=== PATIENT | female | born 1980 | race Caucasian/White ===

== ENCOUNTER 2017-03-26 20:41 | Inpatient (IN) | payer OTHER ==
[2017-03-26 21:30] VITALS: BMI 22.3
--- NOTE | 2017-03-26 21:30 | HP ---
CIWA Score - CIWA Score Nausea/Vomitin-Mild Nausea/No Vomiting Muscle Tremors: 4-Moderate,w/Arms Extend Anxiety: 4-Mod. Anxious/Guarded Agitation: 4-Moderately Restless Paroxysmal Sweats: 1-Minimal Palms Moist Orientation: 0-Oriented Tacttile Disturbances: 0-None Auditory Disturbances: 0-None Visual Disturbances: 0-None Headache: 0-None Present CIWA-Ar Total Score: 14 Admission ROS BHS - HPI Chief Complaint: withdrawal sx Allergies/Adverse Reactions: Allergies Allergy/AdvReac Type Severity Reaction Status Date / Time No Known Allergies Allergy Verified 03/26/17 21:16 History of Present Illness: 36 years old female with long history of alcohol dependence denies medical issue has depression is admitted to detox Exam Limitations: No Limitations - Ebola screening Have you traveled outside of the country in the last 21 days: No (N) Have you had contact with anyone from an Ebola affected area: No Have you been sick,other than usual withdrawal symptoms: No Do you have a fever: No - Review of Systems Constitutional: Changes in sleep, Weight Stable EENT: reports: No Symptoms Reported Respiratory: reports: No Symptoms reported Cardiac: reports: No Symptoms Reported GI: reports: Nausea, Poor Fluid Intake, Abdominal cramping : reports: No Symptoms Reported Musculoskeletal: reports: No Symptoms Reported Integumentary: reports: No Symptoms Reported Neuro: reports: Tremors Endocrine: reports: No Symptoms Reported Hematology: reports: No Symptoms Reported Psychiatric: reports: Judgement Intact, Orientated x3, Anxious, Depressed Other Systems: Reviewed and Negative Patient History - Patient Medical History Hx Anemia: No Hx Asthma: No Hx Chronic Obstructive Pulmonary Disease (COPD): No Hx Cancer: No Hx Cardiac Disorders: No Hx Congestive Heart Failure: No Hx Hypertension: No Hx Hypercholesterolemia: No Hx Pacemaker: No HX Cerebrovascular Accident: No Hx Seizures: No Hx Dementia: No Hx Diabetes: No Hx Gastrointestinal Disorders: No Hx Liver Disease: No Hx Genitourinary Disorders: No Hx Renal Disease (ESRD): No Hx Thyroid Disease: No Hx Human Immunodeficiency Virus (HIV): No Hx Hepatitis C: No Hx Depression: Yes Hx Suicide Attempt: No Hx Bipolar Disorder: No Hx Schizophrenia: No - Patient Surgical History Past Surgical History: No - PPD History Previous Implant?: Yes Documented Results: Negative w/o proof Implanted On Prior [facility] Admission?: No PPD to be Administered?: Yes - Reproductive History Patient is a Female of Child Bearing Age (11 -55 yrs old): Yes Last Menstrual Period: 03/05/17 Patient : No - Smoking Cessation Smoking history: Never smoked Have you smoked in the past 12 months: No Hx Chewing Tobacco Use: No Initiated information on smoking cessation: No - Substance & Tx. History Hx Alcohol Use: Yes Hx Substance Use: No Substance Use Type: Alcohol Hx Substance Use Treatment: No - Substances Abused Alcohol Route: Oral Frequency: Daily Amount used: 2 SIX [id number] Age of first use: 18 Date of Last Use: 03/25/17 Family Disease History - Family Disease History Family Disease History: Heart Disease: Father (), Other: Father Admission Physical Exam [facility] - Physical General Appearance: Yes: Appropriately Dressed, Mild Distress, Thin, Tremorous, Irritable, Sweating, Anxious HEENTM: Yes: Hearing grossly Normal, Normal ENT Inspection, Normocephalic, Normal Voice Respiratory: Yes: Chest Non-Tender, Lungs Clear, Normal Breath Sounds, No Respiratory Distress, No Accessory Muscle Use Neck: Yes: Supple, Trachea in good position Breast: Yes: Breasts Symetrical Cardiology: Yes: Regular Rhythm, Regular Rate, S1, S2 Abdominal: Yes: Normal Bowel Sounds, Non Tender, Soft Genitourinary: Yes: Within Normal Limits Back: Yes: Normal Inspection Musculoskeletal: Yes: full range of Motion, Gait Steady Extremities: Yes: Normal Inspection, Normal Range of Motion, Non-Tender, Tremors Neurological: Yes: Fully Oriented, Alert, Motor Strength 5/5, Normal Response, Depressed Affect Integumentary: Yes: Warm Lymphatic: Yes: Within Normal Limits - Diagnostic (1) Alcohol dependence with uncomplicated withdrawal Current Visit: Yes Status: Acute (2) Depression (emotion) Current Visit: Yes Status: Suspected Qualifiers: Depression Type: dysthymia Qualified Code(s): F34.1 - Dysthymic disorder (3) of family member Current Visit: Yes Status: Chronic Comment: father 4 years ago "we were very close" Cleared for Admission [facility] - Detox or Rehab [facility] Level of Care: Medically Managed Detox Regimen/Protocol: Librium [facility] Breath Alcohol Content Breath Alcohol Content: 0 Vital Signs - Vital Signs Vital Signs Refused: No Temperature: 98.7 F Temperature Source: Oral Pulse Rate: 70 Respiratory Rate: 18 Blood Pressure: 120/74 BP Location: Left Arm Blood Pressure Position: Sitting - Height Height: 5 ft 3 in - Weight Weight: 126 lb Weight Measurement Method: Standing Scale Body Mass Index (BMI): 22.3 - Bowel Function Bowel Movement: Yes Urine Drug Screen - Control Is Test Valid: Yes - Results Drug Screen Negative: Yes
[2017-03-26] MEDS ORDERED: MAGNESIUM HYDROX 2400MG/30ML ORAL SUSPENSION 30 ML CUP PO PRN (21:33)
[2017-03-26] MEDS ORDERED: diphenhydrAMINE HCL 50 MG CAPSULE PO PRN (21:33)
[2017-03-26] MEDS ORDERED: MENTHOL/PHENOL 1 EACH UD MM PRN (21:33)
[2017-03-26] MEDS ORDERED: LOPERAMIDE HCL 2 MG CAPSULE PO PRN (21:33)
[2017-03-26] MEDS ORDERED: MAG HYDROX/AL HYDROX/SIMETH 30 ML UNIT-DOSE CUP PO PRN (21:33)
[2017-03-26] MEDS ORDERED: P-EPHED 60MG/TRIPROLIDI 2.5MG TABLET PO PRN (21:33)
[2017-03-26] MEDS ORDERED: chlordiazePOXIDE HCL 25 MG CAPSULE PO PRN (21:33)
[2017-03-26] MEDS ORDERED: guaiFENesin/D-METHORPHAN HB 10 ML UNIT-DOSE CUPS PO PRN (21:33)
[2017-03-26] MEDS ORDERED: MAGNESIUM CITRATE 300 ML BOTTLE PO PRN (21:33)
[2017-03-26] MEDS ORDERED: hydrOXYzine PAMOATE 50 MG CAPSULE (FP) PO PRN (21:33)
[2017-03-26] MEDS ORDERED: IBUPROFEN 400 MG TABLET (FP) PO PRN (21:33)
[2017-03-26] MEDS: THIAMINE HCL 100 MG TABLET (FP) PO SCH (22:57)
[2017-03-26] MEDS: chlordiazePOXIDE HCL 25 MG CAPSULE PO SCH (22:57)
[2017-03-27] MEDS: chlordiazePOXIDE HCL 25 MG CAPSULE PO SCH ×4 (05:38→22:11)
--- NOTE | 2017-03-27 09:36 | PN ---
BHS CIWA - CIWA Score Nausea/Vomitin Muscle Tremors: 4-Moderate,w/Arms Extend Anxiety: 4-Mod. Anxious/Guarded Agitation: 4-Moderately Restless Paroxysmal Sweats: 3 Orientation: 0-Oriented Tacttile Disturbances: 1-Very Mild Itch/Numbness Auditory Disturbances: 0-None Visual Disturbances: 0-None Headache: 1-Very Mild CIWA-Ar Total Score: 20 BHS Progress Note (SOAP) Subjective: nausea, sweats, interrupted sleep, anxiety, tremors Objective: 03/27/17 09:35 Vital Signs - 24 hr 03/26/17 03/26/17 03/27/17 21:42 23:11 00:30 Temperature 98.7 F 98.2 F Pulse Rate 70 79 Respiratory 18 18 18 Rate Blood Pressure 120/74 106/63 03/27/17 03/27/17 06:33 06:36 Temperature 97.5 F L 97.5 F L Pulse Rate 73 73 Respiratory 18 18 Rate Blood Pressure 119/68 119/68 labs pending Assessment: 03/27/17 09:35 withdrawal sx Plan: cont detox, fluids, encourage ambulation, check labs
[2017-03-27 09:46] LABS: MCH 31.5 pg (25.7-33.7); MCHC 32.7 g/dl (32.0-36.0); MEAN CELL VOLUME 96.4 fl (80-96); MEAN PLT VOLUME 8.4 fl (7.5-11.1); PLATELET COUNT 228 K/MM3 (134-434); RDW 13.8 % (11.6-15.6); WHITE BLOOD COUNT 3.1 K/mm3 (4.0-10.0)
[2017-03-27 10:13] LABS: ALBUMIN 3.8 g/dl (3.4-5.0); ANION GAP 3 (8-16); CALCIUM 8.9 mg/dL (8.5-10.1); CO2 32 mmol/L (21-32); GLUCOSE,RANDOM 84 mg/dL (74-106)
[2017-03-27] MEDS: PRENATAL VITAMINS W/ FOLIC ACID TABLET (FP) PO SCH (10:17)
[2017-03-27 10:18] LABS: ALK PHOS 50 U/L (45-117); BILIRUBIN,TOTAL 0.8 mg/dL (0.2-1.0); CREATININE 0.8 mg/dL (0.55-1.02); SGOT/AST 20 U/L (15-37); SGPT/ALT 27 U/L (12-78); TOT PROT 7.1 g/dl (6.4-8.2)
[2017-03-27] MEDS: ACETAMINOPHEN 325 MG TABLET (FP) PO PRN ×2 (10:19→22:11)
[2017-03-27 11:24] LABS: HIV 1 & 2 AB NEGATIVE; HIV 1 AGp24 NEGATIVE
--- NOTE | 2017-03-27 15:34 | CONSULT ---
[facility] Psychiatric Consult - Data Date of interview: 03/27/17 Admission source: [facility] Identifying data: First admission to [facility] for this 36 y/o [place]-born female seeking detox treatment on for alcohol dependence.Patient is ,a mother of three,domiciled and currently employed. Substance Abuse History: Discussed with patient.Ms Calvillo validates this report. Smoking Cessation. Smoking history: Never smoked. Have you smoked in the past 12 months: No. Hx Chewing Tobacco Use: No. Initiated information on smoking cessation: No. - Substance & Tx. History. Hx Alcohol Use: Yes. Hx Substance Use: No. Substance Use Type: Alcohol. Hx Substance Use Treatment: No. - Substances Abused. Alcohol. Route: Oral. Frequency: Daily. Amount used: 2 SIX [id number]. Age of first use: 18. Date of Last Use: 03/25/17 Medical History: Patient endorses good general health. Psychiatric History: No reported history of psychiatric hospitalizations.Ms Calvillo endorses the diagnosis of MDD and she gets her psychiatric OPD services at the [facility].Managed with psychotherapy + lexapro 10 mg/day (non- adherent for 2-3 days) as per self-report.Patient denies history of suicide attempts. Physical/Sexual Abuse/Trauma History: Patient denies history of abuse. Additional Comment: Drug Screen is negative. Mental Status Exam - Mental Status Exam Alert and Oriented to: Time, Place, Person Cognitive Function: Good Patient Appearance: Well Groomed (short stature,petite) Mood: Hopeful, Euthymic Affect: Appropriate, Normal Range Patient Behavior: Fatigued, Cooperative Speech Pattern: Clear (french fluent) Voice Loudness: Normal Thought Process: Intact, Goal Oriented Thought Disorder: Not Present Hallucinations: Denies Suicidal Ideation: Denies Homicidal Ideation: Denies Insight/Judgement: Fair Sleep: Well Appetite: Good Muscle strength/Tone: Normal Gait/Station: Normal Psychiatric Findings - Problem List ([place] 1, 2,3) (1) Alcohol dependence with uncomplicated withdrawal Current Visit: Yes Status: Acute (2) Alcohol-induced mood disorder Current Visit: Yes Status: Suspected (3) Depressive disorder Current Visit: Yes Status: Chronic - Initial Treatment Plan Initial Treatment Plan: Psychoeducation.Detoxification in progress.Lexapro 10 mg po daily.Side effects/benefits discussed with patient.She is in agreement with this careplan.Observation.
[2017-03-27] MEDS: THIAMINE HCL 100 MG TABLET (FP) PO SCH (22:11)
[2017-03-28] MEDS: chlordiazePOXIDE HCL 25 MG CAPSULE PO SCH ×3 (05:31→17:28)
--- NOTE | 2017-03-28 09:53 | EKG ---
Test Reason : Blood Pressure : / mmHG Vent. Rate : 075 BPM Atrial Rate : 075 BPM P-R Int : 140 ms QRS Dur : 080 ms QT Int : 404 ms P-R-T Axes : 074 073 046 degrees QTc Int : 451 ms SINUS RHYTHM WITH OCCASIONAL PREMATURE VENTRICULAR COMPLEXES POSSIBLE LEFT ATRIAL ENLARGEMENT BORDERLINE ECG NO PREVIOUS ECGS AVAILABLE Confirmed by GENIE CURTIS, ISABEL ([id number]) on 03/28/2017 9:53:24 AM Referred By: Confirmed By:ISABEL PRESCOTT MD
[2017-03-28] MEDS ORDERED: diphenhydrAMINE HCL 25 MG CAPSULE (FP) PO PRN (10:15)
[2017-03-28] MEDS: ESCITALOPRAM OXALATE 10 MG TABLET (FP) PO SCH (10:16)
[2017-03-28] MEDS ORDERED: COLLOIDAL OATMEAL 1 BAR EACH TP PRN (10:16)
[2017-03-28] MEDS: PRENATAL VITAMINS W/ FOLIC ACID TABLET (FP) PO SCH (10:16)
--- NOTE | 2017-03-28 10:37 | PN ---
S CIWA - CIWA Score Nausea/Vomitin Muscle Tremors: 3 Anxiety: 3 Agitation: 2 Paroxysmal Sweats: No Perspiration Orientation: 0-Oriented Tacttile Disturbances: 1-Very Mild Itch/Numbness Auditory Disturbances: 1-Very Mild Visual Disturbances: 0-None Headache: 2-Mild CIWA-Ar Total Score: 15 S Progress Note (SOAP) Subjective: ALERT,IRRITABLE,ANXIOUS,INTERRUPTED SLEEP,TREMOR,ITCHING Objective: 03/28/17 10:34 Vital Signs Temperature 98.1 F 03/28/17 10:25 Pulse Rate 98 H 03/28/17 10:25 Respiratory Rate 18 03/28/17 10:25 Blood Pressure 115/70 03/28/17 10:25 O2 Sat by Pulse Oximetry (%) EKG NSR WITH SINUS ARRHYTHMIA Laboratory Last Values WBC 3.1 K/mm3 (4.0-10.0) L 03/27/17 08:00 RBC 4.32 M/mm3 (3.60-5.2) 03/27/17 08:00 Hgb 13.6 GM/dL (10.7-15.3) 03/27/17 08:00 Hct 41.6 % (32.4-45.2) 03/27/17 08:00 MCV 96.4 fl (80-96) H 03/27/17 08:00 MCH 31.5 pg (25.7-33.7) 03/27/17 08:00 MCHC 32.7 g/dl (32.0-36.0) 03/27/17 08:00 RDW 13.8 % (11.6-15.6) 03/27/17 08:00 Plt Count 228 K/MM3 (134-434) 03/27/17 08:00 MPV 8.4 fl (7.5-11.1) 03/27/17 08:00 Sodium 137 mmol/L (136-145) 03/27/17 07:00 Potassium 4.1 mmol/L (3.5-5.1) 03/27/17 07:00 Chloride 102 mmol/L (98-107) 03/27/17 07:00 Carbon Dioxide 32 mmol/L (21-32) 03/27/17 07:00 Anion Gap 3 (8-16) L 03/27/17 07:00 BUN 11 mg/dL (7-18) 03/27/17 07:00 Creatinine 0.8 mg/dL (0.55-1.02) 03/27/17 07:00 Creat Clearance w eGFR > 60 (>60) 03/27/17 07:00 Random Glucose 84 mg/dL (74-106) 03/27/17 07:00 Calcium 8.9 mg/dL (8.5-10.1) 03/27/17 07:00 Total Bilirubin 0.8 mg/dL (0.2-1.0) 03/27/17 07:00 AST 20 U/L (15-37) 03/27/17 07:00 ALT 27 U/L (12-78) 03/27/17 07:00 Alkaline Phosphatase 50 U/L (45-117) 03/27/17 07:00 Total Protein 7.1 g/dl (6.4-8.2) 03/27/17 07:00 Albumin 3.8 g/dl (3.4-5.0) 03/27/17 07:00 RPR Titer Nonreactive (NONREACTIVE) 03/27/17 07:00 Hepatitis C Antibody <0.1 s/co ratio (0.0-0.9) 03/26/17 08:30 HIV 1&2 Antibody Screen Negative 03/27/17 08:30 HIV P24 Antigen Negative 03/27/17 08:30 WITHDRAWAL SYMPTOM Assessment: 03/28/17 10:35 WITHDRAWAL SYMPTOM Plan: CONTINUE DETOX,AVEENO SOAP,BENADRYL 25 MGS PO Q6HRS PRN FOR ITCHING
[2017-03-28 13:54] LABS: URINE APPEARANCE CLEAR; URINE BILIRUBIN NEGATIVE (NEGATIVE); URINE BLOOD NEGATIVE (NEGATIVE); URINE COLOR LTYELLOW; URINE GLUCOSE (UA) NEGATIVE (NEGATIVE); URINE KETONE NEGATIVE (NEGATIVE); URINE LEUK ESTERASE NEGATIVE (NEGATIVE); URINE NITRITE NEGATIVE (NEGATIVE); URINE PROTEIN NEGATIVE (NEGATIVE); URINE UROBILINOGEN NEGATIVE mg/dL (0.2-1.0)
[2017-03-28] MEDS: chlordiazePOXIDE 5 MG CAPSULE PO SCH (22:13)
[2017-03-28] MEDS: THIAMINE HCL 100 MG TABLET (FP) PO SCH (22:13)
[2017-03-29] MEDS: chlordiazePOXIDE 5 MG CAPSULE PO SCH ×3 (05:40→17:43)
[2017-03-29] MEDS: ESCITALOPRAM OXALATE 10 MG TABLET (FP) PO SCH (10:09)
[2017-03-29] MEDS: PRENATAL VITAMINS W/ FOLIC ACID TABLET (FP) PO SCH (10:09)
--- NOTE | 2017-03-29 10:09 | PN ---
BHS Progress Note (SOAP) Subjective: ALERT,IRRITABLE,INTERRUPTED SLEEP Objective: 03/29/17 10:08 Vital Signs Temperature 98.4 F 03/29/17 06:21 Pulse Rate 69 03/29/17 06:21 Respiratory Rate 16 03/29/17 06:21 Blood Pressure 91/68 03/29/17 06:21 O2 Sat by Pulse Oximetry (%) Assessment: 03/29/17 10:08 WITHDRAWAL SYMPTOM 03/29/17 10:09 Plan: CONTINUE DETOX,DISCHARGE IN AM
[2017-03-29] MEDS: chlordiazePOXIDE HCL 10 MG CAPSULE PO SCH (22:07)
[2017-03-29] MEDS: THIAMINE HCL 100 MG TABLET (FP) PO SCH (22:07)
[2017-03-30] MEDS: chlordiazePOXIDE HCL 10 MG CAPSULE PO SCH (05:03)
[2017-03-30 06:09] VITALS: BP 119/75; PULSE 73; TEMP 97.7
--- NOTE | 2017-03-30 08:12 | DS ---
[facility] Detox Discharge Summary Admission Date: 03/26/17 Discharge Date: 03/30/17 - History Present History: Alcohol Dependence Additional Comments: follow up with after care program as arrangement Pertinent Past History: depression - Physical Exam Results Vital Signs: Vital Signs Temperature 97.7 F 03/30/17 06:00 Pulse Rate 73 03/30/17 06:00 Respiratory Rate 16 03/30/17 06:00 Blood Pressure 119/75 03/30/17 06:00 O2 Sat by Pulse Oximetry (%) Pertinent Admission Physical Exam Findings: withdrawal symptom - Treatment Hospital Course: Detox Protocol Followed, Detoxed Safely, Discharged Condition Good Patient has Accepted a Rehab Referral to: declined - Medication Discharge Medications: Ambulatory Orders Escitalopram Oxalate [Lexapro -] 10 mg PO DAILY 03/26/17 Escitalopram Oxalate [Lexapro -] 10 mg PO DAILY #30 tablet 03/27/17 - Diagnosis (1) Alcohol dependence with uncomplicated withdrawal Current Visit: Yes Status: Acute (2) Depressive disorder Current Visit: Yes Status: Chronic (3) Alcohol-induced mood disorder Current Visit: Yes Status: Suspected - AMA Did Patient Leave Against Medical Advice: No
[2017-03-30] MEDS: PRENATAL VITAMINS W/ FOLIC ACID TABLET (FP) PO SCH (10:13)
[2017-03-30] MEDS: ESCITALOPRAM OXALATE 10 MG TABLET (FP) PO SCH (10:13)
== END 2017-03-30 10:30 | disposition home or self-care (01) | DRG 775 ==
LOC: YASAS 20:41 → Y6N 21:21
PROVIDERS: ADMIT Internal Medicine; ATTEND Internal Medicine
PROC: HZ2ZZZZ Detoxification Services for Substance Abuse Treatment (ICD-10-PCS; principal; 2017-03-26)
DX: F10.230 Alcohol dependence with withdrawal, uncomplicated (principal); F10.24 Alcohol dependence with alcohol-induced mood disorder; F34.1 Dysthymic disorder; Z63.4 Disappearance and death of family member
CPT/HCPCS: 36415; 80053; 81003; 85027; 86593; 86803; 87389; 93005; 93010

== ENCOUNTER 2018-01-15 15:25 | Inpatient (IN) | payer OTHER ==
[2018-01-15 15:53] VITALS: BMI 24.0
--- NOTE | 2018-01-15 19:36 | HP ---
CIWA Score - CIWA Score Nausea/Vomitin Muscle Tremors: 2 Anxiety: 3 Agitation: 2 Paroxysmal Sweats: 1-Minimal Palms Moist Orientation: 0-Oriented Tacttile Disturbances: 0-None Auditory Disturbances: 0-None Visual Disturbances: 0-None Headache: 2-Mild CIWA-Ar Total Score: 13 Admission ROS S - HPI Chief Complaint: alcohol withdrawal symptoms Allergies/Adverse Reactions: Allergies Allergy/AdvReac Type Severity Reaction Status Date / Time No Known Allergies Allergy Verified 01/15/18 19:17 History of Present Illness: 37 yo male with hx of alcohol dependence is here seeking detox. Last detox [facility] March 2017. PMHX:depression. Denies suicidal / homicidal ideation. Longest period sobriety 20 days. Denies hx of seizures or blackouts. Exam Limitations: No Limitations - Ebola screening Have you traveled outside of the country in the last 21 days: No (N) Have you had contact with anyone from an Ebola affected area: No Have you been sick,other than usual withdrawal symptoms: No Do you have a fever: No - Review of Systems Constitutional: Chills, Changes in sleep EENT: reports: No Symptoms Reported Respiratory: reports: No Symptoms reported Cardiac: reports: No Symptoms Reported GI: reports: Nausea, Vomiting : reports: No Symptoms Reported Musculoskeletal: reports: Back Pain, Joint Pain Integumentary: reports: No Symptoms Reported Neuro: reports: Headache Endocrine: reports: Increased Thirst Hematology: reports: No Symptoms Reported Psychiatric: reports: Orientated x3, Depressed Other Systems: Reviewed and Negative Patient History - Patient Medical History Hx Anemia: No Hx Asthma: No Hx Chronic Obstructive Pulmonary Disease (COPD): No Hx Cancer: No Hx Cardiac Disorders: No Hx Congestive Heart Failure: No Hx Hypertension: No Hx Hypercholesterolemia: No Hx Pacemaker: No HX Cerebrovascular Accident: No Hx Seizures: No Hx Dementia: No Hx Diabetes: No Hx Gastrointestinal Disorders: No Hx Liver Disease: No Hx Genitourinary Disorders: No Hx Sexually Transmitted Disorders: No Hx Renal Disease (ESRD): No Hx Thyroid Disease: No Hx Human Immunodeficiency Virus (HIV): No Hx Hepatitis C: No Hx Depression: Yes Hx Suicide Attempt: No Hx Bipolar Disorder: No Hx Schizophrenia: No - Patient Surgical History Past Surgical History: Yes Hx Neurologic Surgery: No Hx Cataract Extraction: No Hx Cardiac Surgery: No Hx Lung Surgery: No Hx Breast Surgery: No Hx Breast Biopsy: No Hx Abdominal Surgery: No Hx Appendectomy: No Hx Cholecystectomy: No Hx Genitourinary Surgery: No Hx Section: No Hx Orthopedic Surgery: No Other Surgical History: tubal litigation 2008 Anesthesia Reaction: No - PPD History Documented Results: Negative w/proof Date: 03/28/17 PPD to be Administered?: No - Reproductive History Last Menstrual Period: 03/05/17 Patient : No - Smoking Cessation Smoking history: Never smoked Have you smoked in the past 12 months: No Hx Chewing Tobacco Use: No Initiated information on smoking cessation: No - Substance & Tx. History Hx Alcohol Use: Yes Hx Substance Use: Yes Substance Use Type: Alcohol Hx Substance Use Treatment: Yes ([facility] March 2017) - Substances Abused Alcohol Route: Oral Frequency: Daily Amount used: beer- 2 six packs Age of first use: 16 Date of Last Use: 01/14/18 Family Disease History - Family Disease History Family Disease History: Heart Disease: Father (), Other: Father Admission Physical Exam [facility] - Vital Signs Vital Signs: Vital Signs - 24 hr 01/15/18 15:51 Temperature 98.9 F Pulse Rate 72 Respiratory 19 Rate Blood Pressure 130/75 - Physical General Appearance: Yes: Appropriately Dressed, Disheveled, Anxious HEENTM: Yes: EOMI, Hearing grossly Normal, Normal ENT Inspection, Normocephalic , Normal Voice, OSWALD, Pharynx Normal, Tm's normal Respiratory: Yes: Chest Non-Tender, Lungs Clear, Normal Breath Sounds, No Respiratory Distress, No Accessory Muscle Use Neck: Yes: Within Normal Limits Breast: Yes: Breast Exam Deferred Cardiology: Yes: Regular Rhythm, Regular Rate Abdominal: Yes: Normal Bowel Sounds, Non Tender, Flat, Soft Genitourinary: Yes: Within Normal Limits Back: Yes: Normal Inspection Musculoskeletal: Yes: full range of Motion, Gait Steady, Pelvis Stable Extremities: Yes: Normal Capillary Refill, Normal Inspection, Normal Range of Motion, Non-Tender Neurological: Yes: nutritionalist II-XII NML intact, Fully Oriented, Motor Strength 5/5, Depressed Affect Integumentary: Yes: Normal Color, Warm Lymphatic: Yes: Within Normal Limits - Diagnostic (1) Alcohol dependence with uncomplicated withdrawal Current Visit: Yes Status: Acute (2) Depression (emotion) Current Visit: Yes Status: Suspected Qualifiers: Depression Type: dysthymia Qualified Code(s): F34.1 - Dysthymic disorder Cleared for Admission [facility] - Detox or Rehab [facility] Level of Care: Medically Managed Detox Regimen/Protocol: Librium [facility] Breath Alcohol Content Breath Alcohol Content: 0 Urine Pregancy Test - Result Urine Test Results: Negative- NO Line Present Urine Drug Screen - Results Drug Screen Negative: Yes
[2018-01-15] MEDS ORDERED: MAGNESIUM CITRATE 300 ML BOTTLE PO PRN (19:47)
[2018-01-15] MEDS ORDERED: ACETAMINOPHEN 325 MG TABLET (FP) PO PRN (19:47)
[2018-01-15] MEDS ORDERED: hydrOXYzine PAMOATE 50 MG CAPSULE (FP) PO PRN (19:47)
[2018-01-15] MEDS ORDERED: MAG HYDROX/AL HYDROX/SIMETH 30 ML UNIT-DOSE CUP PO PRN (19:47)
[2018-01-15] MEDS ORDERED: IBUPROFEN 400 MG TABLET (FP) PO PRN (19:47)
[2018-01-15] MEDS ORDERED: chlordiazePOXIDE HCL 25 MG CAPSULE PO PRN (19:47)
[2018-01-15] MEDS ORDERED: guaiFENesin/D-METHORPHAN HB 10 ML UNIT-DOSE CUPS PO PRN (19:47)
[2018-01-15] MEDS ORDERED: LOPERAMIDE HCL 2 MG CAPSULE PO PRN (19:47)
[2018-01-15] MEDS ORDERED: P-EPHED 60MG/TRIPROLIDI 2.5MG TABLET PO PRN (19:47)
[2018-01-15] MEDS ORDERED: MAGNESIUM HYDROX 2400MG/30ML ORAL SUSPENSION 30 ML CUP PO PRN (19:47)
[2018-01-15] MEDS ORDERED: MENTHOL/PHENOL 1 EACH UD MM PRN (19:47)
[2018-01-15] MEDS: THIAMINE HCL 100 MG TABLET (FP) PO SCH (22:00)
[2018-01-15] MEDS: MELATONIN 5 MG TABLETS PO PRN (22:00)
[2018-01-15] MEDS: chlordiazePOXIDE HCL 25 MG CAPSULE PO SCH (22:00)
[2018-01-16] MEDS: chlordiazePOXIDE HCL 25 MG CAPSULE PO SCH ×4 (05:42→22:11)
--- NOTE | 2018-01-16 07:32 | CONSULT ---
[facility] Psychiatric Consult - Data Date of interview: 01/16/18 Admission source: [facility] Identifying data: This is 37 years old female, single mother of one, living alone, unemployed, on SSI, with no psychiatric hospitalization history, with long history of Alcohol dependence, reports withdrawal symptoms and seeking for detox. Substance Abuse History: - Smoking Cessation. Smoking history: Never smoked. Have you smoked in the past 12 months: No. Hx Chewing Tobacco Use: No. Initiated information on smoking cessation: No. - Substance & Tx. History. Hx Alcohol Use: Yes. Hx Substance Use: Yes. Substance Use Type: Alcohol. Hx Substance Use Treatment: Yes ([facility] March 2017). - Substances Abused. Alcohol. Route: Oral. Frequency: Daily. Amount used: beer- 2 six packs. Age of first use: 16. Date of Last Use: 01/14/18 Medical History: Denies significant medical issues Psychiatric History: Patient reports history of ndepression, denies osychiatric hospitalization history, reports taking prior to admission Lexapro 20mg poqd, but out of medications for a month and refusing to restart them. Patient denies suicidal and homicidal history Physical/Sexual Abuse/Trauma History: Denies Additional Comment: Observation. Detox Unit Care Protocol Mental Status Exam - Mental Status Exam Alert and Oriented to: Person Cognitive Function: Fair Patient Appearance: Unkempt Mood: Sad Affect: Flat Patient Behavior: Sedated Speech Pattern: Delayed Voice Loudness: Mildly Soft/Quiet Thought Process: Circumstantial Thought Disorder: Being Controlled Hallucinations: Denies Suicidal Ideation: Denies Homicidal Ideation: Denies Insight/Judgement: Fair Sleep: Difficulty falling asleep Appetite: Fair Muscle strength/Tone: Mild Hypotonicity Gait/Station: Shuffling Additional Comments: Observation. Detox Unit Care Protocol Psychiatric Findings - Problem List ([place] 1, 2,3) (1) Alcohol induced insomnia Current Visit: Yes Status: Acute (2) Onset of alcohol-induced sleep disorder, insomnia type, during discontinuation or withdrawal Current Visit: Yes Status: Acute (3) Alcohol dependence with uncomplicated withdrawal Current Visit: Yes Status: Acute (4) Alcohol-induced mood disorder Current Visit: No Status: Suspected - Initial Treatment Plan Initial Treatment Plan: Observation. Detox Unit Care Protocol
[2018-01-16 09:41] LABS: HEMOGLOBIN 13.6 GM/dL (10.7-15.3); MCH 31.8 pg (25.7-33.7); MEAN CELL VOLUME 93.4 fl (80-96); MEAN PLT VOLUME 8.6 fl (7.5-11.1); PLATELET COUNT 204 K/MM3 (134-434); RBC 4.28 M/mm3 (3.60-5.2); RDW 13.5 % (11.6-15.6); WHITE BLOOD COUNT 3.1 K/mm3 (4.0-10.0)
[2018-01-16 09:59] LABS: CHLORIDE 102 mmol/L (98-107); POTASSIUM 3.9 mmol/L (3.5-5.1); SODIUM 142 mmol/L (136-145)
[2018-01-16 10:20] LABS: ALBUMIN 3.8 g/dl (3.4-5.0); ALK PHOS 65 U/L (45-117); ANION GAP 8 (8-16); BILIRUBIN,TOTAL 0.8 mg/dL (0.2-1.0); BLOOD UREA NITROGEN 11 mg/dL (7-18); CALCIUM 9.1 mg/dL (8.5-10.1); CO2 32 mmol/L (21-32); CREATININE 0.8 mg/dL (0.55-1.02); GLUCOSE,RANDOM 90 mg/dL (74-106); SGOT/AST 22 U/L (15-37); SGPT/ALT 26 U/L (12-78); TOT PROT 7.2 g/dl (6.4-8.2)
[2018-01-16] MEDS: PRENATAL VITAMINS W/ FOLIC ACID TABLET (FP) PO SCH (10:36)
--- NOTE | 2018-01-16 11:41 | PN ---
S CIWA - CIWA Score Nausea/Vomitin Muscle Tremors: 3 Anxiety: 3 Agitation: 2 Paroxysmal Sweats: 1-Minimal Palms Moist Orientation: 0-Oriented Tacttile Disturbances: 1-Very Mild Itch/Numbness Auditory Disturbances: 1-Very Mild Visual Disturbances: 0-None Headache: 2-Mild CIWA-Ar Total Score: 16 BHS Progress Note (SOAP) Subjective: alert,irritable,anxious,interrupted sleep,tremor,pain in the body Objective: 01/16/18 11:38 Vital Signs Temperature 97.5 F L 01/16/18 09:06 Pulse Rate 65 01/16/18 09:06 Respiratory Rate 18 01/16/18 09:06 Blood Pressure 109/70 01/16/18 09:06 O2 Sat by Pulse Oximetry (%) ekg nsr with sinus arrhythmia qt/qtc 400/440 01/16/18 11:40 Laboratory Last Values WBC 3.1 K/mm3 (4.0-10.0) L 01/16/18 07:00 RBC 4.28 M/mm3 (3.60-5.2) 01/16/18 07:00 Hgb 13.6 GM/dL (10.7-15.3) 01/16/18 07:00 Hct 40.0 % (32.4-45.2) 01/16/18 07:00 MCV 93.4 fl (80-96) 01/16/18 07:00 MCH 31.8 pg (25.7-33.7) 01/16/18 07:00 MCHC 34.0 g/dl (32.0-36.0) 01/16/18 07:00 RDW 13.5 % (11.6-15.6) 01/16/18 07:00 Plt Count 204 K/MM3 (134-434) 01/16/18 07:00 MPV 8.6 fl (7.5-11.1) 01/16/18 07:00 Sodium 142 mmol/L (136-145) 01/16/18 07:00 Potassium 3.9 mmol/L (3.5-5.1) 01/16/18 07:00 Chloride 102 mmol/L (98-107) 01/16/18 07:00 Carbon Dioxide 32 mmol/L (21-32) 01/16/18 07:00 Anion Gap 8 (8-16) 01/16/18 07:00 BUN 11 mg/dL (7-18) 01/16/18 07:00 Creatinine 0.8 mg/dL (0.55-1.02) 01/16/18 07:00 Creat Clearance w eGFR > 60 (>60) 01/16/18 07:00 Random Glucose 90 mg/dL (74-106) 01/16/18 07:00 Calcium 9.1 mg/dL (8.5-10.1) 01/16/18 07:00 Total Bilirubin 0.8 mg/dL (0.2-1.0) 01/16/18 07:00 AST 22 U/L (15-37) 01/16/18 07:00 ALT 26 U/L (12-78) 01/16/18 07:00 Alkaline Phosphatase 65 U/L (45-117) 01/16/18 07:00 Total Protein 7.2 g/dl (6.4-8.2) 01/16/18 07:00 Albumin 3.8 g/dl (3.4-5.0) 01/16/18 07:00 RPR Titer Nonreactive (NONREACTIVE) 01/16/18 07:00 Assessment: 01/16/18 11:39 withdrawal symptom Plan: continue detox
--- NOTE | 2018-01-16 12:45 | EKG ---
Test Reason : Blood Pressure : / mmHG Vent. Rate : 073 BPM Atrial Rate : 073 BPM P-R Int : 144 ms QRS Dur : 076 ms QT Int : 400 ms P-R-T Axes : 080 076 040 degrees QTc Int : 440 ms NORMAL SINUS RHYTHM WITH SINUS ARRHYTHMIA NORMAL ECG WHEN COMPARED WITH ECG OF 26-MAR-2017 21:11, PREMATURE VENTRICULAR COMPLEXES ARE NO LONGER PRESENT T WAVE AMPLITUDE HAS INCREASED IN ANTERIOR LEADS Confirmed by GENIE CURTIS, ISABEL ([id number]) on 01/16/2018 12:45:23 PM Referred By: Confirmed By:ISABEL PRESCOTT MD
[2018-01-16 17:33] LABS: URINE APPEARANCE CLEAR; URINE BILIRUBIN NEGATIVE (<2.0 mg/dL); URINE COLOR YELLOW; URINE GLUCOSE (UA) NEGATIVE (NEGATIVE); URINE KETONE NEGATIVE (NEGATIVE); URINE LEUK ESTERASE NEGATIVE (NEGATIVE); URINE NITRITE NEGATIVE (NEGATIVE); URINE PROTEIN NEGATIVE (NEGATIVE); URINE UROBILINOGEN 4.0 E.U/dl mg/dL (0.2-1.0)
[2018-01-16] MEDS: THIAMINE HCL 100 MG TABLET (FP) PO SCH (22:11)
[2018-01-16] MEDS: MELATONIN 5 MG TABLETS PO PRN (22:11)
[2018-01-17] MEDS: chlordiazePOXIDE HCL 25 MG CAPSULE PO SCH ×3 (05:22→18:30)
--- NOTE | 2018-01-17 10:04 | PN ---
S CIWA - CIWA Score Nausea/Vomitin Muscle Tremors: 3 Anxiety: 3 Agitation: 2 Paroxysmal Sweats: 1-Minimal Palms Moist Orientation: 0-Oriented Tacttile Disturbances: 1-Very Mild Itch/Numbness Auditory Disturbances: 1-Very Mild Visual Disturbances: 0-None Headache: 2-Mild CIWA-Ar Total Score: 16 S Progress Note (SOAP) Subjective: alert,irritable,anxious,interrupted sleep,tremor Objective: 01/17/18 10:02 Vital Signs Temperature 97.3 F L 01/17/18 07:24 Pulse Rate 71 01/17/18 07:24 Respiratory Rate 16 01/17/18 07:24 Blood Pressure 119/56 01/17/18 07:24 O2 Sat by Pulse Oximetry (%) 01/17/18 10:03 Laboratory Last Values WBC 3.1 K/mm3 (4.0-10.0) L 01/16/18 07:00 RBC 4.28 M/mm3 (3.60-5.2) 01/16/18 07:00 Hgb 13.6 GM/dL (10.7-15.3) 01/16/18 07:00 Hct 40.0 % (32.4-45.2) 01/16/18 07:00 MCV 93.4 fl (80-96) 01/16/18 07:00 MCH 31.8 pg (25.7-33.7) 01/16/18 07:00 MCHC 34.0 g/dl (32.0-36.0) 01/16/18 07:00 RDW 13.5 % (11.6-15.6) 01/16/18 07:00 Plt Count 204 K/MM3 (134-434) 01/16/18 07:00 MPV 8.6 fl (7.5-11.1) 01/16/18 07:00 Sodium 142 mmol/L (136-145) 01/16/18 07:00 Potassium 3.9 mmol/L (3.5-5.1) 01/16/18 07:00 Chloride 102 mmol/L (98-107) 01/16/18 07:00 Carbon Dioxide 32 mmol/L (21-32) 01/16/18 07:00 Anion Gap 8 (8-16) 01/16/18 07:00 BUN 11 mg/dL (7-18) 01/16/18 07:00 Creatinine 0.8 mg/dL (0.55-1.02) 01/16/18 07:00 Creat Clearance w eGFR > 60 (>60) 01/16/18 07:00 Random Glucose 90 mg/dL (74-106) 01/16/18 07:00 Calcium 9.1 mg/dL (8.5-10.1) 01/16/18 07:00 Total Bilirubin 0.8 mg/dL (0.2-1.0) 01/16/18 07:00 AST 22 U/L (15-37) 01/16/18 07:00 ALT 26 U/L (12-78) 01/16/18 07:00 Alkaline Phosphatase 65 U/L (45-117) 01/16/18 07:00 Total Protein 7.2 g/dl (6.4-8.2) 01/16/18 07:00 Albumin 3.8 g/dl (3.4-5.0) 01/16/18 07:00 Urine Color Yellow 01/16/18 14:00 Urine Appearance Clear 01/16/18 14:00 Urine pH 7.0 (5.0-8.0) 01/16/18 14:00 Ur Specific [place] 1.011 (1.001-1.035) 01/16/18 14:00 Urine Protein Negative (NEGATIVE) 01/16/18 14:00 Urine Glucose (UA) Negative (NEGATIVE) 01/16/18 14:00 Urine Ketones Negative (NEGATIVE) 01/16/18 14:00 Urine Blood Negative (NEGATIVE) 01/16/18 14:00 Urine Nitrite Negative (NEGATIVE) 01/16/18 14:00 Urine Bilirubin Negative (<2.0 mg/dL) 01/16/18 14:00 Urine Urobilinogen 4.0 e.u/dl mg/dL (0.2-1.0) H 01/16/18 14:00 Ur Leukocyte Esterase Negative (NEGATIVE) 01/16/18 14:00 RPR Titer Nonreactive (NONREACTIVE) 01/16/18 07:00 Assessment: 01/17/18 10:04 withdrawal symptom Plan: continue detox
[2018-01-17] MEDS: PRENATAL VITAMINS W/ FOLIC ACID TABLET (FP) PO SCH (10:19)
[2018-01-17] MEDS: chlordiazePOXIDE 5 MG CAPSULE PO SCH (22:16)
[2018-01-17] MEDS: THIAMINE HCL 100 MG TABLET (FP) PO SCH (22:16)
[2018-01-17] MEDS: MELATONIN 5 MG TABLETS PO PRN (22:16)
[2018-01-18] MEDS: chlordiazePOXIDE 5 MG CAPSULE PO SCH ×3 (05:36→17:30)
--- NOTE | 2018-01-18 09:33 | PN ---
S Progress Note (SOAP) Subjective: alert,irritable,anxious,interrupted sleep Objective: 01/18/18 09:31 Vital Signs Temperature 97.7 F 01/18/18 09:16 Pulse Rate 72 01/18/18 09:16 Respiratory Rate 18 01/18/18 09:16 Blood Pressure 104/57 01/18/18 09:16 O2 Sat by Pulse Oximetry (%) withdrawal symptom Assessment: 01/18/18 09:32 withdrawal symptom Plan: continue detox,psychiatric reevaluation for medication lexapro,discharge in am
[2018-01-18] MEDS: PRENATAL VITAMINS W/ FOLIC ACID TABLET (FP) PO SCH (10:14)
--- NOTE | 2018-01-18 12:33 | PN ---
Psychiatric Progress Note Vital Signs: Vital Signs Period Temp Pulse Resp BP Sys/Tran Pulse Ox Last 24 Hr 97.3 F-98.1 F 71-78 -18 89-107/57-71 Date of Session: 01/18/18 Chief Complaint:: " I would like to take my lexapro" HPI: Patient admitted to for alcohol dependence. ROS: Unremarkable. Current Medications: Active Medications Generic Name Dose Route Start Last Admin Trade Name Freq PRN Reason Stop Dose Admin Acetaminophen 650 mg 01/15/18 19:47 Tylenol - PO Q4H PRN FEVER Al Hydroxide/Mg Hydroxide 30 ml 01/15/18 19:47 Mylanta Oral Suspension - PO Q6H PRN DYSPEPSIA Chlordiazepoxide HCl 15 mg 01/17/18 23:00 01/18/18 10:14 Librium - PO 01/18/18 17:01 15 mg [id number] QASIM Administration Chlordiazepoxide HCl 25 mg 01/15/18 19:47 Librium - PO 01/18/18 19:46 Q4H PRN WITHDRAWAL(CONT SUBST) Chlordiazepoxide HCl 10 mg 01/18/18 23:00 Librium - PO 01/19/18 17:01 [id number] QASIM Escitalopram Oxalate 20 mg 01/18/18 12:30 Lexapro - PO DAILY QASIM Eucalyptus/Menthol/Phenol/Sorbitol 1 each 01/15/18 19:47 Cepastat Lozenge - MM Q4H PRN SORE THROAT Guaifenesin 10 ml 01/15/18 19:47 Robitussin Dm - PO Q6H PRN COUGH Hydroxyzine Pamoate 50 mg 01/15/18 19:47 Vistaril - PO Q4H PRN AGITATION Ibuprofen 400 mg 01/15/18 19:47 Motrin - PO Q6H PRN PAIN LEVEL 4-6 Loperamide HCl 4 mg 01/15/18 19:47 Imodium - PO Q6H PRN DIARRHEA Magnesium Citrate 300 ml 01/15/18 19:47 Citroma - PO Q48H PRN CONSTIPATION Magnesium Hydroxide 30 ml 01/15/18 19:47 Milk Of Magnesia - PO DAILY PRN CONSTIPATION Melatonin 5 mg 01/15/18 22:00 01/17/18 22:16 Melatonin PO 5 mg HS PRN Administration INSOMNIA Multivit/Folic Acid/Iron 1 tab 01/16/18 10:00 01/18/18 10:14 Vitamins (Sjr) - PO 1 tab DAILY QASIM Administration Pseudoephedrine/Triprolidine 1 combo 01/15/18 19:47 Actifed - PO TID PRN NASAL CONGESTION Thiamine HCl 100 mg 01/15/18 22:00 01/17/18 22:16 Vitamin B1 - PO 100 mg HS QASIM Administration Medication(s) Change(s): Lexapro 20mg Current Side Effect: No Lab tests ordered: No Lab tests reviewed: Yes Provider note:: Equipment Associate met with patient concerning psychiatric follow up. Chart reviewed. Dr. Roa's note read and appreciated. Patient admitted to for alcohol dependence. Pt. requesting to restart lexapro 20mg. Previously took Lexapro 20mg on sunday. O[facility] is provided at the [facility] in the [place]. Pharmacy claims reviewed. Lexapro 20mg ordered. Benefits and side effects discussed. Psychoeducation provided. Verbal consent given. As per patient's request a prescription of lexapro 20mg for 30 days was sent to patient's pharmacy. Total face to face time:: 25 Mental Status Exam - Mental Status Exam Alert and Oriented to: Time, Place, Person Cognitive Function: Good Patient Appearance: Well Groomed Mood: Hopeful Affect: Mood Congruent Patient Behavior: Appropriate, Cooperative Speech Pattern: Clear, Appropriate Voice Loudness: Normal Thought Process: Intact, Goal Oriented Thought Disorder: Not Present Hallucinations: Denies Suicidal Ideation: Denies Homicidal Ideation: Denies Insight/Judgement: Poor Sleep: Fair Appetite: Fair Muscle strength/Tone: Normal Gait/Station: Normal Psychiatric Treatment Plan - Problem List (1) Alcohol dependence with uncomplicated withdrawal Current Visit: Yes (2) Alcohol-induced mood disorder Current Visit: Yes
[2018-01-18] MEDS: ESCITALOPRAM OXALATE 20 MG TABLET (FP) PO SCH (12:59)
[2018-01-18] MEDS: chlordiazePOXIDE HCL 10 MG CAPSULE PO SCH (22:19)
[2018-01-18] MEDS: THIAMINE HCL 100 MG TABLET (FP) PO SCH (22:19)
[2018-01-18] MEDS: MELATONIN 5 MG TABLETS PO PRN ×2 (22:20→22:21)
[2018-01-19] MEDS: chlordiazePOXIDE HCL 10 MG CAPSULE PO SCH ×2 (06:07→10:21)
--- NOTE | 2018-01-19 09:18 | PN ---
S Progress Note (SOAP) Subjective: alert,no complaint Objective: 01/19/18 09:17 Vital Signs Temperature 97.5 F L 01/19/18 07:25 Pulse Rate 66 01/19/18 07:25 Respiratory Rate 18 01/19/18 07:25 Blood Pressure 107/63 01/19/18 07:25 O2 Sat by Pulse Oximetry (%) Assessment: 01/19/18 09:17 detox completed,no withdrawal symptom Plan: discharge today,follow up with after care program as arrangement
--- NOTE | 2018-01-19 09:21 | DS ---
[facility] Detox Discharge Summary Admission Date: 01/15/18 Discharge Date: 01/19/18 - History Present History: Alcohol Dependence Additional Comments: follow up with after care program as arrangement Pertinent Past History: alcohol induced insomnia - Physical Exam Results Vital Signs: Vital Signs Temperature 97.5 F L 01/19/18 07:25 Pulse Rate 66 01/19/18 07:25 Respiratory Rate 18 01/19/18 07:25 Blood Pressure 107/63 01/19/18 07:25 O2 Sat by Pulse Oximetry (%) Pertinent Admission Physical Exam Findings: withdrawal signs and symptom Vital Signs Temperature 97.5 F L 01/19/18 07:25 Pulse Rate 66 01/19/18 07:25 Respiratory Rate 18 01/19/18 07:25 Blood Pressure 107/63 01/19/18 07:25 O2 Sat by Pulse Oximetry (%) Laboratory Last Values WBC 3.1 K/mm3 (4.0-10.0) L 01/16/18 07:00 RBC 4.28 M/mm3 (3.60-5.2) 01/16/18 07:00 Hgb 13.6 GM/dL (10.7-15.3) 01/16/18 07:00 Hct 40.0 % (32.4-45.2) 01/16/18 07:00 MCV 93.4 fl (80-96) 01/16/18 07:00 MCH 31.8 pg (25.7-33.7) 01/16/18 07:00 MCHC 34.0 g/dl (32.0-36.0) 01/16/18 07:00 RDW 13.5 % (11.6-15.6) 01/16/18 07:00 Plt Count 204 K/MM3 (134-434) 01/16/18 07:00 MPV 8.6 fl (7.5-11.1) 01/16/18 07:00 Sodium 142 mmol/L (136-145) 01/16/18 07:00 Potassium 3.9 mmol/L (3.5-5.1) 01/16/18 07:00 Chloride 102 mmol/L (98-107) 01/16/18 07:00 Carbon Dioxide 32 mmol/L (21-32) 01/16/18 07:00 Anion Gap 8 (8-16) 01/16/18 07:00 BUN 11 mg/dL (7-18) 01/16/18 07:00 Creatinine 0.8 mg/dL (0.55-1.02) 01/16/18 07:00 Creat Clearance w eGFR > 60 (>60) 01/16/18 07:00 Random Glucose 90 mg/dL (74-106) 01/16/18 07:00 Calcium 9.1 mg/dL (8.5-10.1) 01/16/18 07:00 Total Bilirubin 0.8 mg/dL (0.2-1.0) 01/16/18 07:00 AST 22 U/L (15-37) 01/16/18 07:00 ALT 26 U/L (12-78) 01/16/18 07:00 Alkaline Phosphatase 65 U/L (45-117) 01/16/18 07:00 Total Protein 7.2 g/dl (6.4-8.2) 01/16/18 07:00 Albumin 3.8 g/dl (3.4-5.0) 01/16/18 07:00 Urine Color Yellow 01/16/18 14:00 Urine Appearance Clear 01/16/18 14:00 Urine pH 7.0 (5.0-8.0) 01/16/18 14:00 Ur Specific [place] 1.011 (1.001-1.035) 01/16/18 14:00 Urine Protein Negative (NEGATIVE) 01/16/18 14:00 Urine Glucose (UA) Negative (NEGATIVE) 01/16/18 14:00 Urine Ketones Negative (NEGATIVE) 01/16/18 14:00 Urine Blood Negative (NEGATIVE) 01/16/18 14:00 Urine Nitrite Negative (NEGATIVE) 01/16/18 14:00 Urine Bilirubin Negative (<2.0 mg/dL) 01/16/18 14:00 Urine Urobilinogen 4.0 e.u/dl mg/dL (0.2-1.0) H 01/16/18 14:00 Ur Leukocyte Esterase Negative (NEGATIVE) 01/16/18 14:00 RPR Titer Nonreactive (NONREACTIVE) 01/16/18 07:00 - Treatment Hospital Course: Detox Protocol Followed, Detoxed Safely, Responded well, Discharged Condition Good Patient has Accepted a Rehab Referral to: declined - Medication Discharge Medications: Ambulatory Orders Escitalopram Oxalate [Lexapro -] 20 mg PO DAILY 01/15/18 Gabapentin 300 mg PO BID 01/15/18 Escitalopram Oxalate [Lexapro -] 20 mg PO DAILY #30 tablet 01/18/18 - Diagnosis (1) Alcohol dependence with uncomplicated withdrawal Current Visit: Yes Status: Acute (2) Alcohol induced insomnia Current Visit: Yes Status: Acute (3) Alcohol-induced mood disorder Current Visit: Yes Status: Suspected (4) Depression Current Visit: Yes Status: Acute - AMA Did Patient Leave Against Medical Advice: No
[2018-01-19] MEDS: ESCITALOPRAM OXALATE 20 MG TABLET (FP) PO SCH (09:38)
[2018-01-19] MEDS: PRENATAL VITAMINS W/ FOLIC ACID TABLET (FP) PO SCH (09:38)
[2018-01-19 11:23] VITALS: BP 100/50; PULSE 71; TEMP 97.7
== END 2018-01-19 10:42 | disposition home or self-care (01) | DRG 775 ==
LOC: YASAS 15:25 → Y6N 20:16
PROVIDERS: ADMIT Surgery; ATTEND Surgery
PROC: HZ2ZZZZ Detoxification Services for Substance Abuse Treatment (ICD-10-PCS; principal; 2018-01-15)
DX: F10.230 Alcohol dependence with withdrawal, uncomplicated (principal); F10.282 Alcohol dependence with alcohol-induced sleep disorder; F10.24 Alcohol dependence with alcohol-induced mood disorder; F34.1 Dysthymic disorder
CPT/HCPCS: 36415; 80053; 81003; 85027; 86593; 93005; 93010